=== PATIENT | female | born 1955 | race Caucasian/White ===

== ENCOUNTER 2022-10-03 15:18 | Outpatient (CLI) | payer MEDICARE, SELFPAY ==
--- NOTE | 2022-10-03 15:30 | XR_ITS ---
WS: [id number] DEXA (DUAL ENERGY X-RAY ABSORPTIOMETRY) Bone mineral density was performed using a [employer] machine. HISTORY: POST MENOPAUSAL COMPARISON: None available. Lumbar spine BMD (L1-L4): 1.383 g/cm2 T score: 1.7 Z score: 2.1 Total hip BMD: Left: 0.924 g/cm2. T score: -0.7 Z score: -0.3 Right: 0.954 g/cm2. T score: -0.4 Z score: 0.0 10 year probability of a major osteoporotic fracture is 6.9%. XR/XR DEXA axial skeleton* [id number] IMPRESSION: NORMAL BONE MINERAL DENSITY based upon the WHO classification for females.
== END 2022-10-03 15:19 | disposition home or self-care (01) ==
LOC: RAD 15:20
PROVIDERS: PCP Nurse Practitioner Family; Visit Provider Nurse Practitioner Family
DX: Z78.0 Asymptomatic menopausal state (principal)
CPT/HCPCS: 77080

== ENCOUNTER → 2022-10-17 15:35 | Outpatient (BNVA) | payer MEDICARE, SELFPAY | PROVIDERS: PCP Nurse Practitioner Family; Visit Provider Nurse Practitioner Family | DX: G62.9 Polyneuropathy, unspecified (principal); M54.32 Sciatica, left side; M25.552 Pain in left hip; E11.9 Type 2 diabetes mellitus without complications; E78.5 Hyperlipidemia, unspecified; Z98.84 Bariatric surgery status; G47.00 Insomnia, unspecified; I10 Essential (primary) hypertension; R25.2 Cramp and spasm | CPT/HCPCS: 80053; 80061; 82607; 82746; 83036; 83735; 84443 ==

== ENCOUNTER → 2022-10-22 10:04 | Outpatient (BNVA) | payer MEDICARE, MEDICAID, SELFPAY | PROVIDERS: PCP Nurse Practitioner Family; Visit Provider Podiatrist Foot & Ankle Surgery | DX: I73.9 Peripheral vascular disease, unspecified (principal); R09.89 Other specified symptoms and signs involving the circulatory and respiratory systems; M20.41 Other hammer toe(s) (acquired), right foot; M20.42 Other hammer toe(s) (acquired), left foot; B35.1 Tinea unguium; E11.42 Type 2 diabetes mellitus with diabetic polyneuropathy | CPT/HCPCS: 11721; 99204 ==

== ENCOUNTER 2022-10-28 09:54 | Outpatient (CLI) | payer MEDICARE, MEDICAID, SELFPAY ==
--- NOTE | 2022-10-28 10:06 | MM_ITS ---
WS: [email or web address] BILATERAL SCREENING DIGITAL TOMOSYNTHESIS MAMMOGRAM WITH CAD HISTORY: BREAST CANCER SCREENING COMPARISON: 09/25/2009 and 09/05/2009 Bilateral CC and MLO views with tomosynthesis and synthetic mammography submitted. Computer aided det ection analyzed. Breast composition: There are scattered areas of fibroglandular density. No suspicious masses, microc alcifications or architectural distortion. Numerous small bilateral calcifications. MM/[place] [id number] IMPRESSION: BI-RADS: 2-Benign FOLLOW UP: 1 Year Follow-up
== END 2022-10-28 09:55 | disposition home or self-care (01) ==
PROVIDERS: PCP Nurse Practitioner Family; Visit Provider Nurse Practitioner Family
DX: Z12.31 Encounter for screening mammogram for malignant neoplasm of breast (principal)
CPT/HCPCS: 77063; 77067

== ENCOUNTER 2022-11-04 10:33 | Outpatient (CLI) | payer MEDICARE, MEDICAID, SELFPAY ==
--- NOTE | 2022-11-04 11:00 | CT_ITS ---
WS: [email or web address] LDCT LUNG CANCER SCREENING TECHNIQUE: Noncontrast CT of the chest with coronal and sagittal reformatted images. CLINICAL INFORMATION: SCREENING COMPARISON: None. DLP: 73.81 mGy.cm DIvol: Mean CTDIvol: 1.60 (mGy) All CT scans at [facility] use at least one of these dose optimization techniques: automat ed exposure control; mA and/or kV adjustment per patient size (includes targeted exams where dose is matched to clinical indication); or iterative reconstruction. FINDINGS:Tiny noncalcified nodule RIGHT lower lobe measuring 3 mm. A few tiny noncalcified nodules in the inferior segment RIGHT upper lobe. A few tiny noncalcified nodules in the LEFT lower lobe. Mild aortic calcification. Normal caliber thoracic aorta. No mediastinal or hilar lymphadenopathy. Co ronary calcification. Adrenal glands are normal. Postoperative changes at the GE junction likely with gastric bypass. Hepat omegaly. No axillary lymphadenopathy. Hypertrophic changes thoracic spine. Mild thoracic kyphosis. Calcified g ranuloma LEFT upper lobe. Slight atelectasis in the lingula. CT/CT lung screening [id number] IMPRESSION: LUNG-RADS: 2-Benign Appearance or Behavior FOLLOW UP: 12 Month: Continue annual screening with LDCT
--- NOTE | 2022-11-04 11:37 | XRR_ITS ---
PROCEDURE INFORMATION: Exam: XR Lumbosacral Spine Exam date and time: 11/04/2022 11:37 AM Age: 67 years old Clinical indication: Low back pain and other: Left hip pain; Patient HX: Low back pain, lt hip down leg for 2 months TECHNIQUE: Imaging protocol: Radiologic exam of the lumbosacral spine. Views: 2 or 3 views. COMPARISON: No relevant prior studies available. FINDINGS: Bones/joints: No acute fracture. Mild osteoarthritis is seen. Retrolisthesis L3-L4. Soft tissues: Unremarkable. XR/XR lumbar spine 2-3V* [id number] IMPRESSION: 1. No acute lumbar spine bony abnormality. 2. Retrolisthesis L3-L4 3. Mild osteoarthritis
== END 2022-11-04 10:34 | disposition home or self-care (01) ==
LOC: RAD 10:35
PROVIDERS: PCP Nurse Practitioner Family; Visit Provider Nurse Practitioner Family
DX: Z12.2 Encounter for screening for malignant neoplasm of respiratory organs (principal); F17.200 Nicotine dependence, unspecified, uncomplicated; M25.552 Pain in left hip; M47.816 Spondylosis without myelopathy or radiculopathy, lumbar region
CPT/HCPCS: 71271; 72100

== ENCOUNTER 2022-11-18 07:31 | Outpatient (CLI) | payer MEDICARE, MEDICAID, SELFPAY ==
--- NOTE | 2022-11-18 08:00 | CT_ITS ---
WS: [id number] CT ANGIOGRAPHY OF THE ABDOMINAL AORTA WITH RUNOFF TO THE ANKLES HISTORY: decreased pulses, abnormal gregoria results to left LE TECHNIQUE: Arterial injection is performed during imaging to evaluate the aorta and runoff vessels to the ankles. MIP and volume rendering imaging has also been performed. All images are reviewed. All C T scans at [facility] use at least one of these dose optimization techniques: automated exposu re control; mA and/or kV adjustment per patient size (includes targeted exams where dose is matched t o clinical indication); or iterative reconstruction. Contrast: Omnipaque 350; 100 mL IV. DLP: 812.29 mGy.cm COMPARISON: None available. Lung bases are clear. Normal size heart. No hiatal hernia. Prior gastric bypass. Abdominal aorta: No aneurysm. Moderate atherosclerotic plaque. Combination of wall calcification and intimal thickening. Mild stenosis proximal celiac axis. SMA is normal. Patent bilateral single renal arteries. Patent MEHUL. RIGHT lower extremity arterial system: Mild atherosclerotic plaque common iliac artery. Internal and external iliac arteries are patent. Plaque continues into the femoral artery mild stenosis less than 50% involving the proximal SFA. Intermittent calcification of small caliber SFA. Multifocal areas of significant stenosis. Very high-grade stenosis proximal SFA, greater than 70%. 50% stenosis distal SF A. Less than 50% stenosis popliteal artery. Moderate calcified plaque in the tibioperoneal trunk. 50% stenosis. Small caliber vessel runoff to the ankles. Very small caliber ureter peroneal artery. LEFT lower extremity arterial system: Calcified plaque common, internal and external iliac arteries. Scattered plaque with small caliber arteries. Complete occlusion of the proximal SFA. Deep profunda i s intact. SFA reconstitutes just proximal to Sergio's canal. Small caliber popliteal artery. Very sma ll but three-vessel arterial runoff to the ankle. Early arterial enhancement of the liver, spleen, pancreas, adrenals and kidneys are negative. Kidneys are normally enhancing. No adenopathy or ascites. No ischemic changes in the GI tract. Sigmoid diver ticulosis without acute diverticulitis. No destructive bone lesions. CT/CT angio abd aorta runof [id number] IMPRESSION: 1. 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 2. Proximal RIGHT SFA stenosis 70% with additional areas of lesser stenosis. 3. Moderate calcified plaque RIGHT tibioperoneal trunk, 50% stenosis. 4. Bilateral small caliber three-vessel runoff to the ankles. 5. No ischemic changes in the GI tract or kidneys. 6. Sigmoid diverticulosis without acute diverticulitis. 7. Atherosclerotic plaque aorta and small caliber aorta with no aneurysm or oc clusion.
[2022-11-18] MEDS: iohexol 350 mg/mL 500 mL Btl (per mL) IV (08:14)
== END 2022-11-18 07:32 | disposition home or self-care (01) ==
LOC: RAD 07:34
PROVIDERS: PCP Nurse Practitioner Family; Visit Provider Podiatrist Foot & Ankle Surgery
DX: R09.89 Other specified symptoms and signs involving the circulatory and respiratory systems (principal); I73.9 Peripheral vascular disease, unspecified; I70.92 Chronic total occlusion of artery of the extremities; K57.30 Diverticulosis of large intestine without perforation or abscess without bleeding; K57.32 Diverticulitis of large intestine without perforation or abscess without bleeding
CPT/HCPCS: 75635; Q9967

== ENCOUNTER → 2023-01-21 08:56 | Outpatient (BNVA) | payer MEDICARE, MEDICAID, SELFPAY | PROVIDERS: PCP Nurse Practitioner Family; Visit Provider Podiatrist Foot & Ankle Surgery | DX: E11.8 Type 2 diabetes mellitus with unspecified complications (principal); E11.42 Type 2 diabetes mellitus with diabetic polyneuropathy; I73.9 Peripheral vascular disease, unspecified; M20.42 Other hammer toe(s) (acquired), left foot; M20.41 Other hammer toe(s) (acquired), right foot; B35.1 Tinea unguium; R09.89 Other specified symptoms and signs involving the circulatory and respiratory systems | CPT/HCPCS: 11721 ==

== ENCOUNTER → 2023-02-06 15:31 | Outpatient (BNVA) | payer MEDICARE, MEDICAID, SELFPAY | PROVIDERS: PCP Nurse Practitioner Family; Visit Provider Nurse Practitioner Family | DX: N39.0 Urinary tract infection, site not specified (principal); E78.5 Hyperlipidemia, unspecified; G62.9 Polyneuropathy, unspecified; I10 Essential (primary) hypertension; E11.9 Type 2 diabetes mellitus without complications; E11.42 Type 2 diabetes mellitus with diabetic polyneuropathy | CPT/HCPCS: 80053; 80061; 83036 ==

== ENCOUNTER → 2023-04-22 09:15 | Outpatient (BNVA) | payer MEDICARE, MEDICAID, SELFPAY | PROVIDERS: PCP Nurse Practitioner Family; Visit Provider Podiatrist Foot & Ankle Surgery | DX: I73.9 Peripheral vascular disease, unspecified (principal); B35.1 Tinea unguium; E11.42 Type 2 diabetes mellitus with diabetic polyneuropathy; R09.89 Other specified symptoms and signs involving the circulatory and respiratory systems; M20.41 Other hammer toe(s) (acquired), right foot; M20.42 Other hammer toe(s) (acquired), left foot | CPT/HCPCS: 11721; 99213 ==

== ENCOUNTER → 2023-05-21 11:56 | Outpatient (BNVA) | payer MEDICARE, MEDICAID, SELFPAY | PROVIDERS: PCP Nurse Practitioner Family; Visit Provider Nurse Practitioner Family | DX: E11.42 Type 2 diabetes mellitus with diabetic polyneuropathy (principal); G47.00 Insomnia, unspecified; I10 Essential (primary) hypertension; G62.9 Polyneuropathy, unspecified; E78.5 Hyperlipidemia, unspecified; F41.9 Anxiety disorder, unspecified; E11.9 Type 2 diabetes mellitus without complications; G47.33 Obstructive sleep apnea (adult) (pediatric); J06.9 Acute upper respiratory infection, unspecified; K21.9 Gastro-esophageal reflux disease without esophagitis; H92.01 Otalgia, right ear; J30.2 Other seasonal allergic rhinitis | CPT/HCPCS: 80053; 80061; 83036 ==

== ENCOUNTER → 2023-11-04 11:49 | Outpatient (BNVA) | payer MEDICARE, MEDICAID, SELFPAY | PROVIDERS: PCP Nurse Practitioner Family; Visit Provider Nurse Practitioner Family | DX: R10.9 Unspecified abdominal pain (principal); I10 Essential (primary) hypertension; E78.5 Hyperlipidemia, unspecified; E11.42 Type 2 diabetes mellitus with diabetic polyneuropathy; M25.551 Pain in right hip; F41.9 Anxiety disorder, unspecified; E11.9 Type 2 diabetes mellitus without complications; M25.552 Pain in left hip; G62.9 Polyneuropathy, unspecified; M70.61 Trochanteric bursitis, right hip; J30.2 Other seasonal allergic rhinitis; K21.9 Gastro-esophageal reflux disease without esophagitis; E78.2 Mixed hyperlipidemia; Z79.899 Other long term (current) drug therapy | CPT/HCPCS: 80053; 80061; 83036; 84550; 85651; 86140; 86160; 86162; 86200; 86235; 86255; 86376; 86431 ==

== ENCOUNTER 2023-11-10 10:08 | Outpatient (CLI) | payer OTHER, MEDICAID, SELFPAY ==
--- NOTE | 2023-11-10 10:17 | XR_ITS ---
WS: [email or web address] XR hip RT 2-3V wo/w pel* [id number] REASON FOR EXAM: hip pain FINDINGS: No fracture or focal bone lesion. Moderate narrowing of the joint space with mild subchondral sclerosis and osteophytosis of the acetab ulum. No soft tissue abnormality. IMPRESSION: Moderate osteoarthritis of the right hip.
== END 2023-11-10 10:09 | disposition home or self-care (01) ==
LOC: RAD 10:14
PROVIDERS: PCP Nurse Practitioner Family; Visit Provider Nurse Practitioner Family
DX: M16.11 Unilateral primary osteoarthritis, right hip (principal)
CPT/HCPCS: 73502

== ENCOUNTER 2023-12-09 09:30 | Outpatient (CLI) | payer OTHER, MEDICAID, SELFPAY | END 2023-12-09 09:31 | disposition home or self-care (01) | LOC: SLEEP 12-10 09:41 | PROVIDERS: PCP Nurse Practitioner Family; Visit Provider Nurse Practitioner Family | DX: G47.33 Obstructive sleep apnea (adult) (pediatric) (principal) | CPT/HCPCS: G0399 ==

== ENCOUNTER → 2024-02-12 09:48 | Outpatient (BNVA) | payer OTHER, MEDICAID, SELFPAY | PROVIDERS: PCP Nurse Practitioner Family; Visit Provider Nurse Practitioner Family | DX: F41.9 Anxiety disorder, unspecified (principal); I10 Essential (primary) hypertension; E78.2 Mixed hyperlipidemia; E11.9 Type 2 diabetes mellitus without complications; E11.42 Type 2 diabetes mellitus with diabetic polyneuropathy; G25.81 Restless legs syndrome; Z12.11 Encounter for screening for malignant neoplasm of colon; K21.9 Gastro-esophageal reflux disease without esophagitis; G62.9 Polyneuropathy, unspecified; R91.1 Solitary pulmonary nodule; F17.200 Nicotine dependence, unspecified, uncomplicated; Z12.31 Encounter for screening mammogram for malignant neoplasm of breast; G47.33 Obstructive sleep apnea (adult) (pediatric) | CPT/HCPCS: 80053; 80061; 83036; 85025 ==

== ENCOUNTER → 2024-03-03 10:44 | Outpatient (BNVA) | payer OTHER, MEDICAID, SELFPAY | PROVIDERS: PCP Nurse Practitioner Family; Referring Provider Nurse Practitioner Family; Visit Provider Surgery | DX: Z12.11 Encounter for screening for malignant neoplasm of colon (principal) | CPT/HCPCS: 99024; 99204 ==

== ENCOUNTER 2024-03-10 10:13 | Outpatient (CLI) | payer OTHER, MEDICAID, SELFPAY ==
--- NOTE | 2024-03-10 10:30 | CT_ITS ---
WS: [email or web address] LDCT LUNG CANCER SCREENING HISTORY: pulmonary nodule TECHNIQUE: Axial imaging performed from the apices to 1 cm below the costophrenic angles. Coronal and sagittal reformats are submitted with axial MIP series. All CT scans at [facility] use at least one of these dose optimization techniques: automated exposure control; mA and/or kV adjustment per patient size (includes targeted exams where dose is matched to clinical indication); or iterativ e reconstruction. DLP: 95.60 mGy.cm DIvol: Mean CTDIvol: 2.30 (mGy) COMPARISON: 11/04/2022 Diagnostic quality: Satisfactory Lungs: There are a few tiny scattered micronodules throughout the periphery of both lungs which have not changed. No enlarging mass or nodule. No pneumonia. No endobronchial lesions. No groundglass atte nuation. Heart: Normal size heart with no pericardial effusion.. Moderate coronary artery calcifications. Other findings: Hilar regions are difficult to evaluate for lymph nodes without IV contrast. Small pa ratracheal lymph nodes. Mild atherosclerosis aorta. Small hiatal hernia. No adrenal mass. Prior gastr ic bypass surgery. CT/CT lung screening [id number] IMPRESSION: LUNG-RADS: 2-Benign Appearance or Behavior FOLLOW UP: 1 Month LDCT OTHER FINDINGS (S MODIFIER): None.
== END 2024-03-10 10:14 | disposition home or self-care (01) ==
LOC: RAD 10:13
PROVIDERS: PCP Nurse Practitioner Family; Visit Provider Nurse Practitioner Family
DX: Z12.2 Encounter for screening for malignant neoplasm of respiratory organs (principal); R91.1 Solitary pulmonary nodule; F17.200 Nicotine dependence, unspecified, uncomplicated
CPT/HCPCS: 71271

== ENCOUNTER 2024-04-09 10:51 | Outpatient (CLI) | payer OTHER, SELFPAY ==
--- NOTE | 2024-04-09 11:01 | MR_ITS ---
WS: [email or web address] MRA HEAD TECHNIQUE: Axial 3-D TOF images obtained with axial images and axial, sagittal, and coronal 2-D refor matted images. CLINICAL INFORMATION: PULSITILE TINNITUS OF LEFT EAR, HEARING LOSS, COMPARISON: None. FINDINGS: Distal vertebral arteries are patent. Basilar artery is patent. Normal vascularity to the [employer] territo ry bilaterally. Patent LEFT posterior communicating artery. Both ICAs are patent at the skull base. Normal vascularity to the FERNANDO and MCA territories bilaterally . No evidence of proximal flow-limiting stenosis or aneurysm. MR/MR angio head con [id number] IMPRESSION: Unremarkable intracranial MRA.
--- NOTE | 2024-04-09 11:01 | MR_ITS ---
WS: [email or web address] MRI HEAD WITH CONTRAST WITH ATTENTION TO THE INTERNAL AUDITORY CANALS TECHNIQUE: Sagittal T1, T2 axial, T2 axial flair, axial susceptibility weighted imaging, axial diffus ion weighted images, and coronal T2 images were obtained. Pre and post T1 axial and post T1 coronal i mages. ADC and FSPGR images. Post gadolinium images with attention to the internal auditory canals. A xial fiesta imaging. CLINICAL INFORMATION: PULSITILE TINNITUS OF LEFT EAR, HEARING LOSS, COMPARISON: None. FINDINGS: No evidence of restricted diffusion to suggest acute ischemia. Mild small vessel changes. Moderate pa renchymal volume loss. Normal vascular flow voids at the skull base. No extra-axial fluid collections . Paranasal sinuses and mastoid air cells are well aerated. Small chronic lacunar infarct in the RIGH T mahamed. No hemosiderin on susceptibility-weighted images. Proximal 7th and 8th cranial nerves are normal in appearance. No evidence of enhancing IAC or CP angl e mass. Normal trigeminal nerve root entry zones. No abnormal gadolinium enhancement. Normal dural venous sinuses. RIGHT parietal scalp lesion measurin g 12 x 14 mm likely incidental sebaceous cyst. No other suspicious findings. MR/MR iac's wo/w con* [id number] IMPRESSION: 1. No evidence of restricted diffusion to suggest acute ischemia. 2. Proximal 7th and 8th cranial nerves are normal in appearance. Normal trigem inal nerve root entry zones. 3. No evidence of enhancing IAC or CP angle mass. No abnormal intracranial enh ancement. 4. Small chronic lacunar infarct in the RIGHT mahamed.
--- NOTE | 2024-04-09 11:01 | MR_ITS ---
WS: [email or web address] MRI VENOGRAM HEAD WITHOUT INDICATION: Pulsatile tinnitus TECHNIQUE: Coronal and axial 2D [id number] and sagittal 3D PS MRV with maximum intensity projec tion images. FINDINGS: Sagittal sinus patent. LEFT dominant sigmoid and transverse sinuses. Normal straight sinus and internal cerebral veins. 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 No evidence of dura l sinus thrombosis. No evidence of jugular bulb dehiscence. MR/[place] [id number] IMPRESSION: 1. No evidence of dural sinus thrombosis. 2. Normal variant LEFT dominant sigmoid and transverse sinus with incidental s lightly high riding jugular bulb
[2024-04-09] MEDS: gadobenate dimeglumine 20 mL vial IV (12:18)
== END 2024-04-09 10:52 | disposition home or self-care (01) ==
PROVIDERS: PCP Nurse Practitioner Family; Visit Provider Otolaryngology
DX: H93.A2 Pulsatile tinnitus, left ear (principal); H91.92 Unspecified hearing loss, left ear; L98.9 Disorder of the skin and subcutaneous tissue, unspecified; I63.81 Other cerebral infarction due to occlusion or stenosis of small artery
CPT/HCPCS: 70544; 70553; A9577

== ENCOUNTER 2024-04-13 07:28 | Day surgery (SDC) | payer OTHER, SELFPAY ==
--- NOTE | 2024-04-13 04:06 | W.PM.OPSFHP ---
Same Day Surgery H&P Indication for Procedure/HPI DATE OF PROCEDURE: April 13, 2024 CHIEF COMPLAINT/INDICATIONFOR SURGICAL PROCEDURE: need for screening colonoscopy PREOP DIAGNOSIS: need for screening colonoscopy PLANNED PROCEDURE: Operation Date: 04/13/24 08:25 Proposed Procedures p Colonoscopy 70238, G0121, Z12.11(Not Applicable) - Jamal Foy MD Medications/Allergies* Home Medications Medication Instructions Recorded Confirmed Type albuterol sulfate 90 mcg/actuation 2 puff inhalation Q4H PRN 04/07/24 04/07/24 History aerosol inhaler Shortness Of Breath Or Wheezing diclofenac sodium 100 mg 100 mg PO BID PRN Pain 04/07/24 04/07/24 History tablet,extended release 24 hr levocetirizine 5 mg tablet 5 mg PO DAILY 04/07/24 04/07/24 History pantoprazole 40 mg tablet,delayed 40 mg PO DAILY 04/07/24 04/07/24 History release promethazine-DM 6.25 mg-15 mg/5 mL 5 - 10 ml PO Q6H PRN Cough 04/07/24 04/07/24 History oral syrup ropinirole 0.5 mg tablet 0.5 mg PO BEDTIME 04/07/24 04/07/24 History Allergies/Adverse Reactions Allergy/AdvReac Type Severity Reaction Status Date / Time metformin Allergy Mild Unknown Verified 04/07/24 08:50 Pertinent History/Comorbid Conditions* Medical History (Updated 03/11/24 @ 08:21 by Patt Martin NP) Insomnia Diabetes Hypertension Neuropathy Hyperlipidemia Surgical History (Updated 09/23/22 @ 10:10 by Patt Martin NP) History of gastric bypass (~2006) Family History (Updated 09/23/22 @ 10:09 by Ciara Miller LPN) Diabetes CAD (coronary artery disease) Cancer Hypertension Social History Smoking and tobacco/nicotine status: current every day tobacco/nicotine user Alcohol intake: never Pertinent Exam Findings alert, oriented x 3, clear to auscultation bilaterally and procedure specific exam findings Recommendations Surgery/Procedure today Coding Level of Care Code Acute Code for Chg Fwd
[2024-04-13 07:40] VITALS: BP 170/95; PULSE 65; RESP 16; TEMP 36.1; O2SAT 94; BMI 38.2
[2024-04-13] MEDS: sodium chloride 0.9% 1,000 ML 30 ML IV (08:04)
[2024-04-13 08:07] LABS: Glucose Point of Care 91 mg/dL (70-110)
--- NOTE | 2024-04-13 08:33 | ANES.PREANE2 ---
Pre-Anesthetic Assessment Height/Weight: Height 1.65 m Weight 104.326 kg Temp Pulse Resp BP Pulse Ox O2 Del Method 97 F L 65 16 170/95 94 Room Air 04/13/24 07:40 04/13/24 07:40 04/13/24 07:40 04/13/24 07:40 04/13/24 07:40 04/13/24 07:40 Preop Diagnosis: need for screening colonoscopy Operation Date: 04/13/24 08:25 Proposed Procedures p Colonoscopy 18059, G0121, Z12.11(Not Applicable) - Jamal Foy MD Was Beta Ferdinand taken within 24 hours: N/A Was Clonidine taken within 24 hours: N/A Last intake: Intake Last Liquid Date 04/12/24 Last Liquid Time 20:00 Last Solid Date 04/11/24 Last Solid Time 17:30 Social Tobacco 1 pack(s) per day Exam alert, oriented x 3, clear to auscultation bilaterally and regular rate & rhythm Airway Submandibular: within normal limits Cervical ROM: within normal limits Mallampati: Class II Dentition: false Comments: Comments: Upper plate History/ROS No significant history except as noted and No significant complaints Pulmonary Exertional Dyspnea CV/HEM Hypertension None reported Hepatic None reported GI None reported Metabolic Diabetes Mellitus Musc/skel Osteoarthritis/DJD Neuropsych None reported Anesthetic Plan ASA status: 3 Anesthesia: Anesthesia Evaluation and MAC Risk of > 500 ml blood loss (7ml/kg in children): No Medications/Allergies Home Medications Medication Instructions Recorded Confirmed Last Taken Type Diabetic shoes with 3 set inserts #1 ea 02/13/23 03/03/24 Unknown Rx blood-glucose meter (Blood Glucose #1 ea 05/21/23 03/03/24 Unknown Rx Monitoring kit) lisinopril 20 mg tablet 20 mg PO DAILY 90 days #90 tabs 11/04/23 04/13/24 04/12/24 Rx CPAP (Auto-Titrating CPAP) #1 ea 01/21/24 03/03/24 Unknown Rx semaglutide 1 mg/dose (4 mg/3 mL) 1 mg (0.75 mL) SUBCUT .weekly 4 02/12/24 04/13/24 04/02/24 Rx subcutaneous pen injector (Ozempic) weeks #3 mL gabapentin 400 mg capsule 1,200 mg (3 x 400 mg) PO TID #810 03/12/24 04/13/24 04/07/24 Rx caps albuterol sulfate 90 mcg/actuation 2 puff inhalation Q4H PRN 04/07/24 04/13/24 2 Weeks Ago History aerosol inhaler Shortness Of Breath Or Wheezing ~03/30/24 diclofenac sodium 100 mg 100 mg PO BID PRN Pain 04/07/24 04/13/24 04/07/24 History tablet,extended release 24 hr levocetirizine 5 mg tablet 5 mg PO DAILY 04/07/24 04/13/24 04/12/24 History pantoprazole 40 mg tablet,delayed 40 mg PO DAILY 04/07/24 04/13/24 04/12/24 History release ropinirole 0.5 mg tablet 0.5 mg PO BEDTIME 04/07/24 04/13/24 04/12/24 History Allergies Allergy/AdvReac Type Severity Reaction Status Date / Time metformin AdvReac Mild ADR-Diarrhe Verified 04/13/24 07:44 a Current Medications Generic Name Dose Route Start Last Admin Trade Name Freq PRN Reason Stop Dose Admin Sodium Chloride 1,000 mls @ 30 mls/hr 04/13/24 07:45 04/13/24 08:04 Sodium Chloride 0.9% IV 04/14/24 07:44 30 mls/hr .Q24H TATE Administration PFSH Anesthesia Medical History (Updated 03/11/24 @ 08:21 by Patt Martin NP) Insomnia Diabetes Hypertension Neuropathy Hyperlipidemia Surgical History (Updated 03/03/24 @ 10:53 by ESTEVAN Benitez) History of gastric bypass (~2006) Family History Other CAD (coronary artery disease) Cancer Diabetes Hypertension Social History (Updated 03/03/24 @ 10:54 by ESTEVAN Benitez) Smoking and tobacco/nicotine status: current every day tobacco/nicotine user Alcohol intake: never Data Anesthesia Cardiac Studies: No Data to Display
[2024-04-13 08:45] VITALS: BP 110/58; PULSE 59; RESP 20; TEMP 36.2; O2SAT 100
[2024-04-13 09:07] VITALS: BP 125/58; PULSE 63; RESP 18; O2SAT 94
--- NOTE | 2024-04-13 09:20 | ANE.PACU2 ---
Inpatient post-anesthesia follow up: Airway intact: Yes Vital signs: Temperature 97.1 F Pulse Rate 63 Respiratory Rate 18 Blood Pressure 125/58 Pulse Oximetry 94 Oxygen Delivery Me thod Room Air Oxygen Flow Rate 4 Fraction of Inspir ed Oxygen Hydration adequate: Yes Nausea and vomiting: No Pain level: 1 Mental status: Baseline
== END 2024-04-13 09:20 | disposition home or self-care (01) ==
PROVIDERS: PCP Nurse Practitioner Family; Visit Provider Surgery
PROC: 0DJD8ZZ Inspection of Lower Intestinal Tract, Via Natural or Artificial Opening Endoscopic (ICD-10-PCS; CPT 45378; principal; 2024-04-13 08:25)
DX: Z12.11 Encounter for screening for malignant neoplasm of colon (principal); K64.8 Other hemorrhoids; D12.3 Benign neoplasm of transverse colon; I10 Essential (primary) hypertension; E11.40 Type 2 diabetes mellitus with diabetic neuropathy, unspecified; E78.5 Hyperlipidemia, unspecified; F17.200 Nicotine dependence, unspecified, uncomplicated; Z98.84 Bariatric surgery status
CPT/HCPCS: 36416; 45380; 82962; 88305; J2704; J7030

== ENCOUNTER 2024-04-14 01:10 | Emergency (ER) | payer OTHER, SELFPAY ==
[2024-04-14] VITALS (8 sets, daily range): BP systolic 100–164; BP diastolic 52–88; PULSE 71–84; RESP 14–18; TEMP 36.3–36.6; O2SAT 92–97; BMI 38.2
--- NOTE | 2024-04-14 01:15 | XRR_ITS ---
PROCEDURE INFORMATION: Exam: XR Chest Exam date and time: 04/14/2024 1:19 AM Age: 69 years old Clinical indication: Other: Weak; Additional info: Weakness TECHNIQUE: Imaging protocol: Radiologic exam of the chest. Views: 1 view. COMPARISON: CT lung screening [id number] 03/10/2024 10:31 AM FINDINGS: Lungs: Unremarkable. No consolidation. Pleural spaces: Unremarkable. No pleural effusion. No pneumothorax. Heart/Mediastinum: Unremarkable. No cardiomegaly. Bones/joints: Unremarkable. XR/XR chest 1V portable [id number] IMPRESSION: No acute findings.
--- NOTE | 2024-04-14 01:15 | CTR_ITS ---
PROCEDURE INFORMATION: Exam: CT Head Without Contrast Exam date and time: 04/14/2024 1:38 AM Age: 69 years old Clinical indication: Stroke-like symptoms; Altered mental status/memory loss; Additional info: Encephalopathy, altered mental status TECHNIQUE: Imaging protocol: Computed tomography of the head without contrast. Radiation optimization: All CT scans at this facility use at least one of these dose optimization techniques: automated exposure control; mA and/or kV adjustment per patient size (includes targeted exams where dose is matched to clinical indication); or iterative reconstruction. Other technique: STROKE PROTOCOL was implemented. COMPARISON: 1[place] [id number] 04/09/2024 11:18 AM 2. MR iac's wo/w con* [id number] 04/09/2024 11:40 AM RADIATION DOSE METRICS: Total DLP (mGy-cm): 1069.1 FINDINGS: Brain: There is mild to moderate severity cerebral atrophy. Negative for acute intracranial hemorrhage. Negative for mass effect on the brain. Negative midline shift the brain. Guzman matter and white matter interface is unremarkable. Negative for intracranial mass. No significant white matter changes. Pre-existing completed lacunar infarct in the right mahamed redemonstrated. Cerebral ventricles: No ventriculomegaly. Paranasal sinuses: Visualized sinuses are unremarkable. No fluid levels. Mastoid air cells: Visualized mastoid air cells are well aerated. Bones: Unremarkable. No acute fracture. Soft tissues: Unremarkable. CT/CT head wo con* [id number] IMPRESSION: Negative for acute intracranial pathology. ASSESSMENT: ASPECTS ([place] Stroke Program Early CT Score) is 10.
[2024-04-14 01:43] LABS: Basophils % 0.3 %; Eosinophils # 0.2 10^3/uL (0.0-0.8); Hematocrit 38.1 % (36-47); Lymphocytes # 2.6 10^3/uL (0.8-4.8); Lymphocytes % 27.2 %; Mean Corpuscular HGB Conc 30.4 g/dL (30-55); Mean Corpuscular Hemoglobin 26.9 pg (27-33); Mean Corpuscular Volume 88.2 fl (85-98); Mean Platelet Volume 10.6 fL (7.4-10.4); Monocytes # 0.7 10^3/uL (0.2-0.9); Monocytes % 7.2 %; Neutrophils # 5.94 10^3/uL (1.8-7.7); Neutrophils % 63.2 %; Nucleated Red Blood Cells % 0 %; Platelet Count 255 10^3/cmm (157-399); Red Blood Count 4.32 10^6/uL (3.85-5.65); Red Cell Distribution Width 17.2 % (12.1-15.1); White Blood Count 9.41 10^3/uL (3.29-11.43)
--- NOTE | 2024-04-14 01:57 | ED_ITS ---
HPI - General Adult 2 General: Chief complaint: General Medical Stated complaint: doesn't feel well Time Seen by Provider: 04/14/24 01:16 History of Present Illness: 69-year-old female with a history of jay betes, obesity and hypertension who presents to the emergency room with weakness and some confusion. She had a colonoscopy yesterday. Family says she did eat well today. On presentation she has nothing focal. She says she had some cramps in her right leg and then she had some weakness in her left arm and she just does not feel right. No fevers. No vomiting. No abdominal pain. No chest pain. Review of Systems 2 Narrative: Constitutional symptoms: Negative except as documented in HPI. Skin symptoms: Negative except as documented in HPI. Eye symptoms: Negative except as documented in HPI. ENMT symptoms: Negative except as documented in HPI. Respiratory symptoms: Negative except as documented in HPI. Cardiovascular symptoms: Negative except as documented in HPI. Gastrointestinal symptoms: Negative except as documented in HPI. Genitourinary symptoms: Negative except as documented in HPI. Musculoskeletal symptoms: Negative except as documented in HPI. Neurologic symptoms: Negative except as documented in HPI. Psychiatric symptoms: Negative except as documented in HPI. Endocrine symptoms: Negative except as documented in HPI. PFSH ED 2 PFSH: Medical History (Updated 04/14/24 @ 03:11 by Hansa Egan MD) Insomnia Diabetes Hypertension Neuropathy Hyperlipidemia Surgical History (Updated 03/03/24 @ 10:53 by ESTEVAN Benitez) History of gastric bypass (~2006) Family History Other CAD (coronary artery disease) Cancer Diabetes Hypertension Social History (Updated 03/03/24 @ 10:54 by ESTEVAN Benitez) Smoking and tobacco/nicotine status: current every day tobacco/nicotine user Alcohol intake: never Physical Exam 2 Narrative: EXAM NARRATIVE: General: Alert, no acute distress. Skin: Warm, dry. Head: Normocephalic, atraumatic. Neck: Supple, trachea midline. Eye: Extraocular movements are intact. Ears, nose, mouth and throat: mucosa moist. Cardiovascular: Regular, Normal peripheral perfusion. Respiratory: Lungs are clear to auscultation, respirations are non-labored, breath sounds are equal, Symmetrical chest wall expansion. Gastrointestinal: Soft, Nontender, Non distended Musculoskeletal: Normal ROM, no deformity. Neurological: Alert and oriented, No focal neurological deficit observed. Psychiatric: Cooperative, odd affect. She is having trouble explaining what her symptoms are and says that she feels like her body is collapsing on itself Course 2 Vital Signs: Vital signs: Vital Signs Temperature 97.4 F L 04/14/24 01:37 Pulse Rate 84 04/14/24 02:30 Respiratory Rate 14 04/14/24 03:21 Blood Pressure 118/52 04/14/24 03:21 Pulse Oximetry 95 04/14/24 03:21 Oxygen Delivery Me thod Room Air 04/14/24 03:21 MDM - General Adult Medical Decision Making Medical decision making: Differential diagnosis for patient presenting with generalized weakness including but not limited to and based on the above HPI, review of systems and physical exam: Sepsis. Dehydration. Renal failure. Electrolyte abnormalities. Anemia. Congestive heart failure. Hypotension. Coronary syndrome. Hepatitis. Cirrhosis. Infections such as pneumonia, urinary tract infection, [place] illness, Cellulitis, Viral infections including influenza and Covid-19. Workup: labwork and lab/exam driven imaging ordered to evaluate, rule in and rule out above pathologies. Lab Review: Laboratory results were reviewed and interpreted by myself the emergency room physician. No leukocytosis. No anemia. BUN/creatinine are 17 and 1.2. Her creatinine is normally around 0.5. Also her glucose 58. I think this represents some dehydration and some hypoglycemia. She also has a bit of a urinary tract infection. Chest x-ray: No acute process. No infiltrate. No pneumothorax. This was reviewed and interpreted by myself the ER physician. CT head: No acute intracranial process. no intracranial hemorrhage, no evidence of infarct. no evidence of acute fracture.This was reviewed and interpreted by myself the ER physician. EKG: Time 1:51 AM rate 66. Normal sinus rhythm, No ST-T changes, no ectopy, normal MD & QRS intervals, This was reviewed and interpreted by myself the ER physician at 1:55 AM Assessment and plan: Urinary tract infection Dehydration Hypoglycemia ?Normal saline bolus, glucose is improved with diet, IV Rocephin - Discharged home - Discussed findings and plan with patient. Answered any questions. - All laboratory values were reviewed and interpreted personally by myself, the ER physician - All imaging was reviewed and interpreted personally by myself, the ER physician. - Evaluation and treatment of this problem were appropriate in the emergency setting Lab Data 04/14/24 01:30 04/14/24 01:30 Radiology Impressions Chest X-Ray 04/14/24 01:15 IMPRESSION: No acute findings. Head CT 04/14/24 01:15 IMPRESSION: Negative for acute intracranial pathology. ASSESSMENT: ASPECTS ([place] Stroke Program Early CT Score) is 10. Laboratory Results WBC 9.41 10^3/uL (3.29-11.43) 04/14/24 01:30 RBC 4.32 10^6/uL (3.85-5.65) 04/14/24 01:30 Hgb 11.60 g/dL (11.27-16.99) 04/14/24 01:30 Hct 38.1 % (36-47) 04/14/24 01:30 MCV 88.2 fl (85-98) 04/14/24 01:30 MCH 26.9 pg (27-33) L 04/14/24 01:30 MCHC 30.4 g/dL (30-55) 04/14/24 01:30 RDW 17.2 % (12.1-15.1) H 04/14/24 01:30 Plt Count 255 10^3/cmm (157-399) 04/14/24 01:30 MPV 10.6 fL (7.4-10.4) H 04/14/24 01:30 Neut % (Auto) 63.2 % 04/14/24 01:30 Lymph % (Auto) 27.2 % 04/14/24 01:30 [place] % (Auto) 7.2 % 04/14/24 01:30 Eos % (Auto) 2.0 % 04/14/24 01:30 Baso % (Auto) 0.3 % 04/14/24 01:30 Neut # (Auto) 5.94 10^3/uL (1.8-7.7) 04/14/24 01:30 Lymph # (Auto) 2.6 10^3/uL (0.8-4.8) 04/14/24 01:30 [place] # (Auto) 0.7 10^3/uL (0.2-0.9) 04/14/24 01:30 Eos # (Auto) 0.2 10^3/uL (0.0-0.8) 04/14/24 01:30 Baso # (Auto) 0.0 10^3/uL (0.0-0.1) 04/14/24 01:30 Nucleated RBC % (auto) 0 % 04/14/24 01:30 Nucleated RBCs # 0.0 /100WBC 04/14/24 01:30 PT 12.90 SECONDS (12.1-14.9) 04/14/24 01:30 INR 0.94 (0.8-1.2) 04/14/24 01:30 APTT 28.8 SECONDS (23.9-36.7) 04/14/24 01:30 Sodium 144 mmol/L (136-145) 04/14/24 01:30 Potassium 3.6 mmol/L (3.5-5.1) 04/14/24 01:30 Chloride 110 mmol/L (98-107) H 04/14/24 01:30 Carbon Dioxide 25 mmol/L (22-29) 04/14/24 01:30 Anion Gap 12.6 (5-19) 04/14/24 01:30 BUN 17 mg/dL (8-23) 04/14/24 01:30 Creatinine 1.2 mg/dL (0.5-0.9) H 04/14/24 01:30 GFR Calculation 44.8 mL/min (90-130) L 04/14/24 01:30 Glucose 58 mg/dL (65-115) L 04/14/24 01:30 POC Glucose 96 mg/dL (70-110) 04/14/24 03:06 Calculated Osmolality 297 mOsm/kg (285-295) H 04/14/24 01:30 Lactic Acid 1.4 mmol/L (0.5-2.2) 04/14/24 01:30 Calcium 8.5 mg/dL (8.5-10.5) 04/14/24 01:30 Total Bilirubin 0.2 mg/dL (0.15-1.2) 04/14/24 01:30 AST 16 U/L (0-32) 04/14/24 01:30 ALT 16 U/L (0-33) 04/14/24 01:30 Alkaline Phosphatase 76 U/L (35-105) 04/14/24 01:30 Troponin T Baseline 17 ng/L (0-10) H 04/14/24 01:30 C-Reactive Protein 3.2 mg/L (0.0-4.9) 04/14/24 01:30 Total Protein 6.2 g/dL (6.6-8.7) L 04/14/24 01:30 Albumin 4.0 g/dL (3.5-5.2) 04/14/24 01:30 Globulin 2.2 g/dL (1.3-4.6) 04/14/24 01:30 Urine Color Dark yellow (Yellow) A 04/14/24 02:02 Urine Appearance Cloudy (CLEAR) A 04/14/24 02:02 Urine pH 5 (5-7) 04/14/24 02:02 Ur Specific [place] 1.025 (1.005-1.030) 04/14/24 02:02 Urine Protein 1+ (Negative) H 04/14/24 02:02 Urine Glucose (UA) Norm (Normal) 04/14/24 02:02 Urine Ketones 1+ (Negative) H 04/14/24 02:02 Urine Blood Neg (Negative) 04/14/24 02:02 Urine Nitrate Negative (Negative) 04/14/24 02:02 Urine Bilirubin Neg (Negative) 04/14/24 02:02 Urine Urobilinogen Neg mg/dL (Negative) 04/14/24 02:02 Ur Leukocyte Esterase Negative (Negative) 04/14/24 02:02 Urine RBC 0-4 /hpf (0-2) H 04/14/24 02:02 Urine WBC 0-4 /hpf (0-5) H 04/14/24 02:02 Ur Squamous Epith Cells 15-25 /hpf (0-5) H 04/14/24 02:02 Amorphous Sediment Not Reportable 04/14/24 02:02 Urine Bacteria 2+ /hpf (NONE) H 04/14/24 02:02 Urine Mucus 2+ /hpf 04/14/24 02:02 All radiology interpretation(s) finalized by discharge Discharge Plan Discharge Patient Disposition: Home Clinical Impression: Urinary tract infection, Dehydration, Hypoglycemia Condition: Stable Prescriptions: New cefdinir 300 mg capsule 300 mg PO BID 5 Days Qty: 10 0RF No Action (DME) Diabetic shoes with 3 set inserts See Rx Instructions .Route .MEDSUPPLY Qty: 1 0RF Rx Instructions: As directed by HOME (DME) blood-glucose meter [Blood Glucose Monitoring] Kit See Rx Instructions .Route Qty: 1 0RF Rx Instructions: 1glucometer and all necessary supplies as covered by insurance lisinopril 20 mg tablet 20 mg PO DAILY 90 Days Qty: 90 1RF Ozempic 1 mg/dose (4 mg/3 mL) pen injector 1 mg SUBCUT .weekly 28 Days Qty: 3 2RF (DME) Auto-Titrating CPAP Device See Rx Instructions .Route Qty: 1 0RF Rx Instructions: Auto titrating CPAP 6 to 16 cm With all required supplies and equipment gabapentin 400 mg capsule 1,200 mg PO TID Qty: 810 0RF Rx Instructions: 1,200 mg orally three times daily; diclofenac sodium 100 mg tablet extended release 24 hr 100 mg PO BID PRN (Reason: Pain) pantoprazole 40 mg tablet,delayed release (DR/EC) 40 mg PO DAILY Rx Instructions: Take 1 tablet by mouth once daily albuterol sulfate 90 mcg/actuation HFA aerosol inhaler 2 puff inhalation Q4H PRN (Reason: Shortness Of Breath Or Wheezing) Rx Instructions: INHALE 2 PUFFS BY MOUTH SIX TIMES DAILY NEEDED FOR SHORTNESS OF BREATH OR WHEEZING levocetirizine 5 mg tablet 5 mg PO DAILY Rx Instructions: TAKE 1 TABLET BY MOUTH EVERY DAY AT BEDTIME ropinirole 0.5 mg tablet 0.5 mg PO BEDTIME Rx Instructions: TAKE 1 TABLET BY MOUTH EVERY DAY AT BEDTIME FOR 30 DAYS Discharge Orders: Discharge ED (Routine); Ordered 04/14/24 Ordered By: Hansa Egan Referrals: Patt Martin NP [Primary Care Provider] - Discharge Diet: Usual diet Discharge Activity: Resume usual activity Patient Instructions: Urinary Tract Infection in Older Adults (ED) Activity Restrictions/Additional Instructions: Thank you for choosing [facility] for your healthcare needs today. Please realize this is an emergency room and that we are providing you with a medical screening exam and this may not be complete and all inclusive of all the testing and or work up that you may need to determine your ailment or severity of your illness. You have been screened and evaluated and felt safe for discharge. Health conditions do change or evolve sometimes and as such it is important that you follow up with your Primary Doctor to be re checked, 3-5 days is a general good time frame for follow up. You are always welcome to return to the ED for re assessment if your symptoms are worsening or you have new concerns Coding Level of Care Code ED Separator Tender for Ludwin Berrios
[2024-04-14 01:59] LABS: INR 0.94 (0.8-1.2)
[2024-04-14 02:00] LABS: Lactic Sepsis W/Reflex 1.4 mmol/L (0.5-2.2); Partial Thromboplastin Time 28.8 SECONDS (23.9-36.7); Troponin(5th) Baseline 17 ng/L (0-10)
[2024-04-14 02:09] LABS: Alanine Aminotransferase 16 U/L (0-33); Alkaline Phosphatase 76 U/L (35-105); Anion Gap 12.6 (5-19); Aspartate Amino Transferase 16 U/L (0-32); Blood Urea Nitrogen 17 mg/dL (8-23); C Reactive Protein 3.2 mg/L (0.0-4.9); Calcium 8.5 mg/dL (8.5-10.5); Carbon Dioxide 25 mmol/L (22-29); Chloride 110 mmol/L (98-107); Globulin 2.2 g/dL (1.3-4.6); Glomerular Filtration Rate 44.8 mL/min (90-130); Glucose 58 mg/dL (65-115); Osmolality Calculated 297 mOsm/kg (285-295); Potassium 3.6 mmol/L (3.5-5.1); Sodium 144 mmol/L (136-145); Total Bilirubin 0.2 mg/dL (0.15-1.2); Total Protein 6.2 g/dL (6.6-8.7)
[2024-04-14 03:04] LABS: Add Urine Culture? No; Bacteria Urine 2+ /hpf; Bilirubin Urine Neg (Negative); Blood Urine Neg (Negative); Glucose Urine UA Norm (Normal); Ketones Urine 1+ (Negative); Leukocyte Esterase Urine Negative (Negative); Mucus Urine 2+ /hpf; Nitrate Urine Negative (Negative); Protein Urine 1+ (Negative); RBC Urine 0-4 /hpf (0-2); Specific Gravity, Urine 1.025 (1.005-1.030); Squamous Epithelial Cell Urine 15-25 /hpf (0-5); Urine Appearance Cloudy (CLEAR); Urine Color Dark Yellow (Yellow); Urobilinogen Urine Neg (Negative); WBC Urine 0-4 /hpf (0-5); pH Urine 5 (5-7)
[2024-04-14 03:12] LABS: Glucose Point of Care 96 mg/dL (70-110)
[2024-04-14] MEDS: cefTRIAXone 1,000 MG in sodium chloride 0.9% (plus) 50 ML 100 MG IV (03:25)
== END 2024-04-14 04:46 | disposition home or self-care (01) ==
PROVIDERS: Emergency Provider Emergency Medicine; PCP Nurse Practitioner Family
DX: E11.649 Type 2 diabetes mellitus with hypoglycemia without coma (principal); N39.0 Urinary tract infection, site not specified; E86.0 Dehydration
CPT/HCPCS: 36415; 36416; 70450; 71045; 80053; 81001; 82962; 83605; 84484; 85025; 85610; 85730; 86140; 87040; 96365; 99285; J0696

== ENCOUNTER → 2024-04-16 11:50 | Outpatient (BNVA) | payer OTHER, SELFPAY | PROVIDERS: PCP Nurse Practitioner Family; Visit Provider Nurse Practitioner Family | DX: I10 Essential (primary) hypertension (principal); K21.9 Gastro-esophageal reflux disease without esophagitis; G25.81 Restless legs syndrome; E11.42 Type 2 diabetes mellitus with diabetic polyneuropathy; G62.9 Polyneuropathy, unspecified; E11.9 Type 2 diabetes mellitus without complications; J30.2 Other seasonal allergic rhinitis | CPT/HCPCS: 80053; 85025 ==

== ENCOUNTER 2024-06-17 08:10 | Outpatient (CLI) | payer OTHER, MEDICAID, SELFPAY ==
--- NOTE | 2024-06-17 08:00 | CT_ITS ---
WS: [id number] CT HEAD TECHNIQUE: Noncontrast CT of the head obtained from the skullbase to the vertex. CLINICAL INFORMATION: visual changes COMPARISON: CT 04/14/2024 DLP: 1065.[address] scans at [facility] use at least one of these dose optimization techniques: automated e xposure control; mA and/or kV adjustment per patient size (includes targeted exams where dose is matc hed to clinical indication); or iterative reconstruction. FINDINGS: No evidence of intracranial hemorrhage or mass effect. Ventricular system and basal cisterns are mcallister nt. Mild small vessel changes with moderate parenchymal volume loss in the frontal lobes. No extra-ax ial fluid collections. No evidence of mass or mass effect. Paranasal sinuses and mastoid air cells are well aerated. .Normal visualized soft tissues. Calcified osteoma LEFT frontal sinus. CT/CT head wo con* [id number] IMPRESSION: 1. No evidence of intracranial hemorrhage or mass effect. 2. No acute intracranial findings.
--- NOTE | 2024-06-17 08:41 | XR_ITS ---
WS: [id number] XR hip RT 2-3V wo/w pel* [id number] REASON FOR EXAM: hip pain FINDINGS: Examination is unchanged compared to the previous study of 11/30/2023. In retrospect the osteoarthritis was felt to be more severe than moderate . A CT angiogram of the ab dominal aorta and runoff vessels was rewindowed at bone technique and there is shown to be essentiall y [id number] articulation in the right hip joint posteriorly. XR/XR hip RT 2-3V wo/w pel* [id number] IMPRESSION: Severe osteoarthritis of the right hip with [id number] articulation posterior ly as above.
== END 2024-06-17 08:11 | disposition home or self-care (01) ==
LOC: RAD 08:11
PROVIDERS: PCP Nurse Practitioner Family; Visit Provider Nurse Practitioner Family
DX: M16.11 Unilateral primary osteoarthritis, right hip (principal); H55.00 Unspecified nystagmus
CPT/HCPCS: 70450; 73502

== ENCOUNTER → 2024-06-30 08:51 | Outpatient (BNVA) | payer OTHER, MEDICAID, SELFPAY | PROVIDERS: PCP Nurse Practitioner Family; Visit Provider Nurse Practitioner | DX: M70.61 Trochanteric bursitis, right hip (principal); M54.41 Lumbago with sciatica, right side | CPT/HCPCS: 20610; 73502; 99204 ==

== ENCOUNTER 2024-08-06 10:24 | Emergency (ER) | payer OTHER, MEDICAID, SELFPAY ==
[2024-08-06 10:39] VITALS: BP 212/66; PULSE 66; RESP 16; TEMP 36.6; O2SAT 97; BMI 38.2
--- NOTE | 2024-08-06 10:41 | ED_ITS ---
HPI - Extremity Injury (Lower) 2 General: Chief Complaint: Extremity Injury, Lower Stated Complaint: right leg pain and tingling Time Seen by Provider: 08/06/24 10:29 History of Present Illness: 69-year-old female presents emergency ro om complaint of right-sided lower back pain that radiates into the right lower leg particularly the anterior thigh. She states her whole leg feels numb and tingly. But a year ago she has surgery for her back due to left-sided leg pain. That is still doing well. She denies any recent trauma or injury she denies any precipitating events no difficulty with urinary retention or fecal incontinence. Related Data Home Medications Medication Instructions Recorded Confirmed albuterol sulfate 90 mcg/actuation See Rx Instructions .Route 08/06/24 08/06/24 aerosol inhaler .COMPLEX PRN Shortness Of Breath Or Wheezing diclofenac sodium 100 mg 100 mg PO BID 08/06/24 08/06/24 tablet,extended release 24 hr levocetirizine 5 mg tablet 5 mg PO BEDTIME 08/06/24 08/06/24 Previous Rx's Medication Instructions Recorded Diabetic shoes with 3 set inserts #1 ea 02/13/23 blood-glucose meter (Blood Glucose #1 ea 05/21/23 Monitoring kit) CPAP (Auto-Titrating CPAP) #1 ea 01/21/24 gabapentin 400 mg capsule 1,200 mg (3 x 400 mg) PO TID #810 04/16/24 caps lisinopril 20 mg tablet 20 mg PO DAILY 90 days #90 tabs 04/16/24 pantoprazole 40 mg tablet,delayed 40 mg PO DAILY 90 days #90 tabs 04/16/24 release ropinirole 0.5 mg tablet 0.5 mg PO BEDTIME 90 days #90 tabs 04/16/24 semaglutide 1 mg/dose (4 mg/3 mL) 1 mg (0.75 mL) SUBCUT .weekly 4 04/16/24 subcutaneous pen injector (Ozempic) weeks #3 mL Rollater with brakes and seat #1 ea 07/01/24 Bariatric Rollator #1 ea 07/09/24 diclofenac sodium 75 mg 75 mg PO Q12H PRN pain #20 tabs 08/06/24 tablet,delayed release prednisone 20 mg tablet 20 mg PO TID #15 tabs 08/06/24 tizanidine 4 mg tablet 4 mg PO Q6H PRN muscle spasticity 08/06/24 #20 tabs Allergies Allergy/AdvReac Type Severity Reaction Status Date / Time metformin AdvReac Mild ADR-Diarrhe Verified 06/30/24 09:02 a Review of Systems 2 Const: Denies: fever(s) or chills Card: Denies: chest pain Resp: Denies: dyspnea GI: Denies: abdominal pain : Denies: dysuria, urinary frequency or urinary urgency Musc: Reports: back pain and extremity pain; Denies: neck pain or extremity swelling Skin/Breast: Denies: rash PFSH ED 2 PFSH: Medical History Lumbago with sciatica, right side Insomnia Diabetes Hypertension Neuropathy Hyperlipidemia Surgical History History of gastric bypass (~2006) Family History Other CAD (coronary artery disease) Cancer Diabetes Hypertension Social History Smoking and tobacco/nicotine status: current every day tobacco/nicotine user Alcohol intake: never Physical Exam 2 Const: GENERAL APPEARANCE: cooperative ORIENTATION/CONSCIOUSNESS: Yes awake, Yes oriented to person, Yes oriented to place and Yes oriented to time HENMT: COMMON NORMALS: normocephalic, atraumatic and hearing grossly normal bilaterally HEAD & SCALP: normocephalic and atraumatic Resp: COMMON NORMALS: normal respiratory effort, No retractions, No use of accessory muscles and clear to auscultation bilaterally AUSCULTATION: clear to auscultation bilaterally Cardio: COMMON NORMALS: regular rate, regular rhythm and No murmurs present (Cardio) RATE: regular rate RHYTHM: regular rhythm GI: COMMON NORMALS: Soft to palpation and No hepatosplenomegaly present A USCULTATION: Yes normoactive bowel sounds PALPATION: Yes Soft to palpation, No Tenderness to palpation present (GI), No Guarding due to palpation present (GI) and Yes No hepatosplenomegaly present Extremity: COMMON NORMALS: normal to inspection, capillary refill normal, no clubbing, cyanosis or edema, no calf tenderness and no pedal edema Neuro: SENSORIUM/ORIENTATION: Yes oriented to person, Yes oriented to place and Yes oriented to time Skin: COMMON NORMALS: no rashes or lesions noted GENERAL SKIN EXAM: no rashes or lesions noted Course 2 Vital Signs: Vital signs: Vital Signs Temperature 97.8 F 08/06/24 10:39 Pulse Rate 66 08/06/24 13:42 Respiratory Rate 18 08/06/24 13:42 Blood Pressure 170/80 08/06/24 13:42 Pulse Oximetry 93 08/06/24 13:42 Oxygen Delivery Me thod Room Air 08/06/24 10:39 MDM - Extremity Injury (Lower) Medical Decision Making Back pain with radicular symptoms no sign of cauda equina. CT does not show any acute issues white count normal. Improvement with medications given. Will discharge patient home steroid taper anti-inflammatories muscle relaxers and follow-up with back surgeon and she is seen previously. Will set up for an outpatient MRI. Medical Records I reviewed the patient's medical records. Lab Data I reviewed the patient's lab results. 08/06/24 10:57 08/06/24 10:57 Radiology Impressions Lumbar Spine CT 08/06/24 11:28 IMPRESSION: 1. Prior L4-5 posterior lumbar fusion with interbody spacer. 2. Large posterior laminectomy defect at L4-5. 3. L3-4: Moderate to severe central with bilateral foraminal stenosis. 4. L3 retrolisthesis by 4 mm. 5. No acute lumbar fracture. Laboratory Results WBC 6.55 10^3/uL (3.29-11.43) 08/06/24 10:57 RBC 4.32 10^6/uL (3.85-5.65) 08/06/24 10:57 Hgb 11.90 g/dL (11.27-16.99) 08/06/24 10:57 Hct 39.4 % (36-47) 08/06/24 10:57 MCV 91.2 fl (85-98) 08/06/24 10:57 MCH 27.5 pg (27-33) 08/06/24 10:57 MCHC 30.2 g/dL (30-55) 08/06/24 10:57 RDW 16.4 % (12.1-15.1) H 08/06/24 10:57 Plt Count 251 10^3/cmm (157-399) 08/06/24 10:57 MPV 10.8 fL (7.4-10.4) H 08/06/24 10:57 Neut % (Auto) 64.5 % 08/06/24 10:57 Lymph % (Auto) 24.6 % 08/06/24 10:57 [place] % (Auto) 6.1 % 08/06/24 10:57 Eos % (Auto) 4.1 % 08/06/24 10:57 Baso % (Auto) 0.5 % 08/06/24 10:57 Neut # (Auto) 4.23 10^3/uL (1.8-7.7) 08/06/24 10:57 Lymph # (Auto) 1.6 10^3/uL (0.8-4.8) 08/06/24 10:57 [place] # (Auto) 0.4 10^3/uL (0.2-0.9) 08/06/24 10:57 Eos # (Auto) 0.3 10^3/uL (0.0-0.8) 08/06/24 10:57 Baso # (Auto) 0.0 10^3/uL (0.0-0.1) 08/06/24 10:57 Nucleated RBC % (auto) 0 % 08/06/24 10:57 Nucleated RBCs # 0.0 /100WBC 08/06/24 10:57 Sodium 144 mmol/L (136-145) 08/06/24 10:57 Potassium 4.6 mmol/L (3.5-5.1) 08/06/24 10:57 Chloride 106 mmol/L (98-107) 08/06/24 10:57 Carbon Dioxide 29 mmol/L (22-29) 08/06/24 10:57 Anion Gap 13.6 (5-19) 08/06/24 10:57 BUN 17 mg/dL (8-23) 08/06/24 10:57 Creatinine 0.8 mg/dL (0.5-0.9) 08/06/24 10:57 GFR Calculation 71.5 mL/min (90-130) L 08/06/24 10:57 Glucose 98 mg/dL (65-115) 08/06/24 10:57 Calculated Osmolality 300 mOsm/kg (285-295) H 08/06/24 10:57 Calcium 8.2 mg/dL (8.5-10.5) L 08/06/24 10:57 Total Bilirubin 0.3 mg/dL (0.15-1.2) 08/06/24 10:57 AST 16 U/L (0-32) 08/06/24 10:57 ALT 14 U/L (0-33) 08/06/24 10:57 Alkaline Phosphatase 82 U/L (35-105) 08/06/24 10:57 Total Protein 6.8 g/dL (6.6-8.7) 08/06/24 10:57 Albumin 4.1 g/dL (3.5-5.2) 08/06/24 10:57 Globulin 2.7 g/dL (1.3-4.6) 08/06/24 10:57 All radiology interpretation(s) finalized by discharge Discharge Plan Discharge Patient Disposition: Home Clinical Impression: Lumbar back pain with radiculopathy affecting right lower extremity Condition: Stable Prescriptions: New tizanidine 4 mg tablet 4 mg PO Q6H PRN (Reason: muscle spasticity) Qty: 20 0RF Rx Instructions: do not exceed 3 doses per 24 hrs prednisone 20 mg tablet 20 mg PO TID Qty: 15 0RF Rx Instructions: 1 p.o. 3 times daily x3 days, 1 p.o. twice daily x2 days, 1 p.o. daily x2 days diclofenac sodium 75 mg tablet,delayed release (DR/EC) 75 mg PO Q12H PRN (Reason: pain) Qty: 20 0RF Discontinued ibuprofen [Advil] 200 mg Tablet 800 mg PO Q6H PRN (Reason: Pain) No Action (DME) Diabetic shoes with 3 set inserts See Rx Instructions .Route .MEDSUPPLY Qty: 1 0RF Rx Instructions: As directed by HOME (DME) blood-glucose meter [Blood Glucose Monitoring] Kit See Rx Instructions .Route Qty: 1 0RF Rx Instructions: 1glucometer and all necessary supplies as covered by insurance lisinopril 20 mg tablet 20 mg PO DAILY 90 Days Qty: 90 1RF pantoprazole 40 mg tablet,delayed release (DR/EC) 40 mg PO DAILY 90 Days Qty: 90 1RF Rx Instructions: Take 1 tablet by mouth once daily ropinirole 0.5 mg tablet 0.5 mg PO BEDTIME 90 Days Qty: 90 1RF Rx Instructions: TAKE 1 TABLET BY MOUTH EVERY DAY AT BEDTIME FOR 30 DAYS Ozempic 1 mg/dose (4 mg/3 mL) pen injector 1 mg SUBCUT .weekly 28 Days Qty: 3 2RF gabapentin 400 mg capsule 1,200 mg PO TID Qty: 810 1RF Rx Instructions: 1,200 mg orally three times daily; (DME) Auto-Titrating CPAP Device See Rx Instructions .Route Qty: 1 0RF Rx Instructions: Auto titrating CPAP 6 to 16 cm With all required supplies and equipment (DME) Rollater with brakes and seat See Rx Instructions .Route .MEDSUPPLY Qty: 1 0RF Rx Instructions: As directed (DME) Bariatric Rollator See Rx Instructions .Route .MEDSUPPLY Qty: 1 0RF Rx Instructions: As directed length of service 99 diclofenac sodium 100 mg tablet extended release 24 hr 100 mg PO BID Rx Instructions: Take 1 tablet by mouth twice daily albuterol sulfate 90 mcg/actuation HFA aerosol inhaler See Rx Instructions .ROUTE .COMPLEX PRN (Reason: Shortness Of Breath Or Wheezing) Rx Instructions: INHALE 2 PUFFS BY MOUTH SIX TIMES DAILY NEEDED FOR SHORTNESS OF BREATH FOR WHEEZING levocetirizine 5 mg tablet 5 mg PO BEDTIME Discharge Orders: Discharge ED (Routine); Ordered 08/06/24 Ordered By: Alber Sarkar Referrals: Patt Martin, ELISSA [Primary Care Provider] - Discharge Diet: Usual diet Discharge Activity: Increase activity as tolerated Patient Instructions: Opioid Safety, Pain Management Activity Restrictions/Additional Instructions: Thank you for choosing [facility] for your healthcare needs today. It is very important that you follow up as instructed or that you return to the Emergency Department should you have concerns or if your condition changes or worsens in any way. You were seen in the emergency room complaining of right lower back pain with right leg radiculopathy.. There is no sign on exam or history of cauda equina syndrome labs and imaging are unremarkable will discharge home with steroids muscle relaxer and anti-inflammatory such up for an outpatient MRI you had stated you had a follow-up appointment with back surgeon you have been seen previously next week. Coding Level of Care Code ED Driver Service Technician for Ludwin Berrios
[2024-08-06 11:09] LABS: Basophils % 0.5 %; Eosinophils # 0.3 10^3/uL (0.0-0.8); Eosinophils % 4.1 %; Hematocrit 39.4 % (36-47); Lymphocytes # 1.6 10^3/uL (0.8-4.8); Lymphocytes % 24.6 %; Mean Corpuscular HGB Conc 30.2 g/dL (30-55); Mean Corpuscular Hemoglobin 27.5 pg (27-33); Mean Corpuscular Volume 91.2 fl (85-98); Mean Platelet Volume 10.8 fL (7.4-10.4); Monocytes # 0.4 10^3/uL (0.2-0.9); Monocytes % 6.1 %; Neutrophils # 4.23 10^3/uL (1.8-7.7); Neutrophils % 64.5 %; Nucleated Red Blood Cells % 0 %; Platelet Count 251 10^3/cmm (157-399); Red Blood Count 4.32 10^6/uL (3.85-5.65); Red Cell Distribution Width 16.4 % (12.1-15.1); White Blood Count 6.55 10^3/uL (3.29-11.43)
[2024-08-06 11:28] LABS: Alanine Aminotransferase 14 U/L (0-33); Albumin Level 4.1 g/dL (3.5-5.2); Alkaline Phosphatase 82 U/L (35-105); Anion Gap 13.6 (5-19); Aspartate Amino Transferase 16 U/L (0-32); Blood Urea Nitrogen 17 mg/dL (8-23); Calcium 8.2 mg/dL (8.5-10.5); Carbon Dioxide 29 mmol/L (22-29); Chloride 106 mmol/L (98-107); Creatinine Clr Calc Pharmacy 81.7966; Globulin 2.7 g/dL (1.3-4.6); Glomerular Filtration Rate 71.5 mL/min (90-130); Glucose 98 mg/dL (65-115); Osmolality Calculated 300 mOsm/kg (285-295); Potassium 4.6 mmol/L (3.5-5.1); Sodium 144 mmol/L (136-145); Total Bilirubin 0.3 mg/dL (0.15-1.2); Total Protein 6.8 g/dL (6.6-8.7)
--- NOTE | 2024-08-06 11:28 | CT_ITS ---
WS: [id number] CT LUMBAR SPINE, noncontrast. HISTORY: back pain w R leg radiculopathy TECHNIQUE: Contiguous 2.0 mm axial imaging are performed. Sagittal and coronal reformats are submitte d and reviewed. All CT scans at [facility] use at least one of these dose optimization techni ques: automated exposure control; mA and/or kV adjustment per patient size (includes targeted exams w here dose is matched to clinical indication); or iterative reconstruction. IV contrast: None DLP: 978.21 mGy.cm COMPARISON: Radiograph 11/04/2022 Posterior lumbar fusion at L4-5 with interbody spacer. Interbody spacer appears appropriately positio noble. No lucency around the screws. L3 retrolisthesis by 4 mm. Osseous fusion involving the LEFT L4-5 facets. L1-2: Normal. L2-3: Asymmetric disc bulging to the RIGHT. RIGHT foraminal disc protrusion. No high-grade stenosis. Mild encroachment upon the RIGHT subarticular recess. L3-4: Marked annular disc bulging effacing the ventral CSF. Increased soft tissue in the foramina and centrally. Components of disc protrusions are likely. There is moderate to severe central with bilat eral foraminal stenosis. L4-5: Partially obscured by hardware artifact. Moderate LEFT foraminal stenosis. Large posterior lami nectomy defect. L5-S1: Mild disc bulging. Scattered aortic calcifications. CT/CT lumbar spine wo con* [id number] IMPRESSION: 1. Prior L4-5 posterior lumbar fusion with interbody spacer. 2. Large posterior laminectomy defect at L4-5. 3. L3-4: Moderate to severe central with bilateral foraminal stenosis. 4. L3 retrolisthesis by 4 mm. 5. No acute lumbar fracture.
[2024-08-06] MEDS: dexamethasone 10 mg/mL INJ IVP (11:37)
[2024-08-06] MEDS: ketorolac 30 mg/mL INJ 15 MG IVP (11:38)
[2024-08-06] MEDS: orphenadrine 30 mg/mL Inj 2 mL 60 MG IVP (11:38)
[2024-08-06 13:42] VITALS: BP 170/80; PULSE 66; RESP 18; O2SAT 93
--- NOTE | 2024-08-09 10:05 | DCPLANNER ---
faxed outpatient mri order to scheduling
== END 2024-08-06 13:43 | disposition home or self-care (01) ==
PROVIDERS: Emergency Provider Family Medicine; PCP Nurse Practitioner Family
DX: M54.16 Radiculopathy, lumbar region (principal); E11.9 Type 2 diabetes mellitus without complications; I10 Essential (primary) hypertension; Z72.0 Tobacco use
CPT/HCPCS: 36415; 72131; 80053; 85025; 96374; 96375; 99285; J1100; J1885; J2360

== ENCOUNTER 2024-08-24 07:02 | Outpatient (CLI) | payer MEDICARE, MEDICAID, SELFPAY ==
--- NOTE | 2024-08-24 07:07 | MR_ITS ---
WS: [id number] MRI LUMBAR SPINE NONCONTRAST HISTORY: LOW BACK PAIN WITH RIGHT LEG RADICULOPATHY, history of prior lumbar fusion. COMPARISON: Lumbar spine CT 08/06/2024 TECHNIQUE: Sagittal and axial multisequence imaging is submitted. Mild increase in the thoracic kyphosis. Posterior lumbar fusion at L4-5 with interbody spacer. Disc spaces are narrowed and desiccated. 2 mm retrolisthesis of L3. Conus terminates normally at L1-2 disc level. L1-L2: Mild annular disc bulging with mild ligamentum flavum and facet arthritis. No significant sten osis. L2-L3: Mild annular disc bulging with mild ligamentum flavum and facet arthritis. Disc encroachment u nilton the subarticular recesses and traversing L3 nerve roots, RIGHT greater than LEFT. L3-L4: Artifact obscuring detail from the prior fusion. There is soft tissue which is intermediate si gnal extending into the RIGHT subarticular recess and the RIGHT foramen. There is broad-based disc pr otrusion extends into the foramen and also contacts the exiting RIGHT L3 nerve root. This does appear to be a large disc protrusion deforming the thecal sac. Mild disc bulging resulting in mild LEFT for aminal stenosis also. Moderate central stenosis. L4-L5: Mild osteophytic ridging. Large posterior laminectomy defect. Mild foraminal stenosis. L5-S1: No stenosis. Paravertebral soft tissues are negative. MR/MR lumbar spine wo con* [id number] IMPRESSION: 1. Prior posterior lumbar fusion at L4-5 with interbody disc spacer. 2. L3-4: Large RIGHT disc protrusion extends into the subarticular recess and through the RIGHT foramen. There is contact and displacement of the central cor d sac and the RIGHT L3 and L4 nerve roots. 3. L3-4: Moderate central stenosis with severe RIGHT subarticular recess and f oraminal stenosis. Mild LEFT foraminal stenosis. 4. L4-5: Mild foraminal stenosis. 5. L2-3: Mild disc encroachment upon the subarticular recesses and traversing L3 nerve roots, RIGHT greater than LEFT.
== END 2024-08-24 07:03 | disposition home or self-care (01) ==
PROVIDERS: PCP Nurse Practitioner Family; Visit Provider Family Medicine
DX: M54.10 Radiculopathy, site unspecified (principal); M43.26 Fusion of spine, lumbar region; M51.26 Other intervertebral disc displacement, lumbar region; M48.061 Spinal stenosis, lumbar region without neurogenic claudication
CPT/HCPCS: 72148

== ENCOUNTER 2024-10-05 15:20 | Outpatient (CLI) | payer MEDICARE, MEDICAID, SELFPAY ==
--- NOTE | 2024-10-05 15:30 | USCV_ITS ---
Laura Worthington Age: 69 Gender: F : 1955 Exam Date: 10/05/2024 15:33 Ordering Phys: Kaci Olivier BUCKLE STAPLER BUCKLE STAPLER Technologist: MARQUEZ Exam Location: [facility] [place] Indication: LE Pain and swelling HISTORY: Lower extremity swelling. Lower extremity edema. Lower extremity pain. PROCEDURES: Venous duplex imaging was performed in only the left lower extremity. The following venous structures were evaluated: common femoral vein, profunda vein, proximal portion of the greater saphenous vein, superficial femoral vein, and the popliteal vein. In addition, the posterior tibial and peroneal trunk were evaluated. Serial compression, augmentation maneuvers, and spectral Doppler flow evaluation were performed. FINDINGS: No evidence of DVT seen in any vessel visualized at this time. CONCLUSIONS No evidence of left lower extremity DVT. Velasquez Roach MD (Electronically Signed) Final Date: 05 October 2024 17:58 S
== END 2024-10-05 15:21 | disposition home or self-care (01) ==
LOC: RAD 15:22
PROVIDERS: Visit Provider Nurse Practitioner Family
DX: M79.605 Pain in left leg (principal); M79.89 Other specified soft tissue disorders
CPT/HCPCS: 93971

== ENCOUNTER → 2024-10-13 12:19 | Outpatient (BNVA) | payer MEDICARE, MEDICAID, SELFPAY | PROVIDERS: PCP Nurse Practitioner Family; Visit Provider Nurse Practitioner Family | DX: M79.605 Pain in left leg (principal); R60.0 Localized edema; E78.2 Mixed hyperlipidemia; I10 Essential (primary) hypertension; L03.116 Cellulitis of left lower limb | CPT/HCPCS: 80053; 83735; 83880; 85025 ==

== ENCOUNTER → 2025-05-31 12:40 | Outpatient (BNVA) | payer MEDICARE, MEDICAID, SELFPAY | PROVIDERS: PCP Nurse Practitioner Family; Visit Provider Nurse Practitioner Family | DX: E78.2 Mixed hyperlipidemia (principal); E11.42 Type 2 diabetes mellitus with diabetic polyneuropathy | CPT/HCPCS: 80053; 80061; 83036; 84443; 85025 ==

== ENCOUNTER → 2025-06-08 09:43 | Outpatient (BNVA) | payer MEDICARE, MEDICAID, SELFPAY | PROVIDERS: PCP Nurse Practitioner Family; Visit Provider Nurse Practitioner Family | DX: D64.9 Anemia, unspecified (principal); M25.552 Pain in left hip | CPT/HCPCS: 82728; 83550; 85025 ==

== ENCOUNTER 2025-06-28 15:04 | Oncology outpatient (recurring) (ONCR) | payer MEDICARE, MEDICAID, SELFPAY | END 2025-07-05 23:59 | disposition home or self-care (01) | LOC: ONCMED 15:05 | PROVIDERS: PCP Nurse Practitioner Family; Visit Provider Internal Medicine Medical Oncology | DX: D50.9 Iron deficiency anemia, unspecified (principal); Z87.891 Personal history of nicotine dependence; Z98.84 Bariatric surgery status; Z79.899 Other long term (current) drug therapy | CPT/HCPCS: 99204 ==